=== PATIENT | female | born 1950 | race Two or more races ===

== ENCOUNTER 2016-04-03 17:51 | Inpatient (IN) | payer MEDICARE, MEDICAID ==
[~2016-04-03] VITALS: Ht 160 cm; Wt 72.1 kg
[2016-04-03] MEDS ORDERED: NITROGLYCERIN PACKET 1 GM PACKET ONE (18:45)
[2016-04-03] MEDS ORDERED: LORAZEPAM 1 MG TABLET ONE (18:45)
[2016-04-03 18:46] LABS: BASOPHILS % (AUTO) 0.4 % (0.0-2.0); DIFF TOTAL % 100 %; EOSINOPHILS % (AUTO) 0.5 % (0.0-6.0); HEMATOCRIT 38 % (33-45); HEMOGLOBIN 12.4 g/dL (11.5-14.8); LYMPHOCYTES # (AUTO) 1.3 /CMM (0.8-4.8); LYMPHOCYTES % (AUTO) 13.5 % (20.0-44.0); MEAN CORPUSCULAR HEMOGLOBIN 29 PG (26.0-33.0); MEAN CORPUSCULAR HGB CONC 33 g/dl (31.0-36.0); MEAN CORPUSCULAR VOLUME 87 fL (82-100); MONOCYTES # (AUTO) 0.4 /CMM (0.1-1.30); MONOCYTES % (AUTO) 4.5 % (2.0-12.0); NEUTROPHILS # (AUTO) 7.7 /CMM (1.8-8.9); NEUTROPHILS % (AUTO) 81.1 % (43.0-81.0); PLATELET COUNT (AUTO) 281 /CMM (150-450); RED BLOOD CELL COUNT(AUTO) 4.31 MIL/uL (4.0-5.2); WHITE BLOOD COUNT (AUTO) 9.4 K/uL (4.3-11.0)
[2016-04-03 19:00] LABS: INR 0.97 (0.87-1.13); PROTHROMBIN TIME 10.2 SECS (9.5-12.7)
[2016-04-03] MEDS ORDERED: NITROGLYCERIN PACKET 1 GM PACKET TD ONE (19:00)
[2016-04-03] MEDS ORDERED: LORAZEPAM 1 MG TABLET PO ONE (19:00)
[2016-04-03] MEDS ORDERED: ASPIRIN 325 MG TABLET PO ONE (19:00)
[2016-04-03] MEDS ORDERED: ASPIRIN 325 MG TABLET ONE (19:03)
[2016-04-03 19:05] LABS: TROPONIN I < 0.017 ng/mL (0.00-0.056)
[2016-04-03 19:09] LABS: CALCIUM, SERUM 7.8 mg/dL (8.5-10.1); CARBON DIOXIDE 28 mmol/L (21-32); CREATININE 0.6 mg/dL (0.6-1.3); GFR 100 mL/min (>60); GLUCOSE 98 mg/dL (74-106); UREA NITROGEN, BLOOD 11 mg/dL (7-18)
[2016-04-03 19:26] LABS: CHLORIDE 94 mmol/L (98-107); POTASSIUM 3.4 mmol/L (3.5-5.1); SODIUM SERUM 128 mmol/L (136-145)
[2016-04-03 19:31] LABS: ANION GAP 9 (5-14)
[2016-04-03] MEDS ORDERED: IV NS 0.9% 500 ML IV ONE (19:44)
[2016-04-03] MEDS ORDERED: IV SET PRIMARY 1 EA INFUS.SET MC ONE (19:44)
[2016-04-03] MEDS ORDERED: IV NS 0.9% 500 ML BAG IV ONE (20:00)
[2016-04-03] MEDS ORDERED: ACETAMINOPHEN 325 MG TABLET PO PRN (20:30)
[2016-04-03] MEDS ORDERED: Z GUARD REMEDY 2 OZ OINT TP PRN (20:30)
[2016-04-03] MEDS ORDERED: ZOLPIDEM TARTRATE 5 MG TABLET PO PRN (20:30)
[2016-04-03] MEDS ORDERED: MAGNESIUM HYDROXIDE 30 ML UDC PO PRN (20:30)
[2016-04-03] MEDS ORDERED: HYDROCODONE/APAP 5/325MG 1 EACH TABLET PO PRN (20:30)
[2016-04-03] MEDS ORDERED: MAG HYDROX/AL HYDROX/SIMETH 30 ML UDC PO PRN (20:30)
[2016-04-03] MEDS ORDERED: ONDANSETRON HCL/PF 4 MG/2 ML VIAL IVP PRN (20:30)
[2016-04-03 20:55] VITALS: BP 129/81
[2016-04-03 21:00] VITALS: BP 129/81
[2016-04-04] VITALS (7 sets, daily range): BP systolic 103–134; BP diastolic 60–85
[2016-04-04] MEDS ORDERED: HYDR25TA4 PO (02:51)
[2016-04-04] MEDS ORDERED: ENAL10TA PO (02:51)
[2016-04-04] MEDS ORDERED: THYR60TA2 PO (02:51)
[2016-04-04 08:04] LABS: BASOPHILS % (AUTO) 0.3 % (0.0-2.0); DIFF TOTAL % 100 %; EOSINOPHILS # (AUTO) 0.1 /CMM (0.0-0.7); EOSINOPHILS % (AUTO) 1.1 % (0.0-6.0); HEMATOCRIT 36 % (33-45); HEMOGLOBIN 12.3 g/dL (11.5-14.8); LYMPHOCYTES # (AUTO) 2.1 /CMM (0.8-4.8); LYMPHOCYTES % (AUTO) 23.9 % (20.0-44.0); MEAN CORPUSCULAR HEMOGLOBIN 30 PG (26.0-33.0); MEAN CORPUSCULAR HGB CONC 34 g/dl (31.0-36.0); MEAN CORPUSCULAR VOLUME 88 fL (82-100); MONOCYTES # (AUTO) 0.8 /CMM (0.1-1.30); MONOCYTES % (AUTO) 9.6 % (2.0-12.0); NEUTROPHILS # (AUTO) 5.6 /CMM (1.8-8.9); NEUTROPHILS % (AUTO) 65.1 % (43.0-81.0); PLATELET COUNT (AUTO) 273 /CMM (150-450); RED BLOOD CELL COUNT(AUTO) 4.12 MIL/uL (4.0-5.2); WHITE BLOOD COUNT (AUTO) 8.6 K/uL (4.3-11.0)
[2016-04-04 08:06] LABS: CALCIUM, SERUM 8.2 mg/dL (8.5-10.1); CREATININE 0.5 mg/dL (0.6-1.3); PHOSPHORUS 3.5 mg/dL (2.5-4.9); POTASSIUM 3.2 mmol/L (3.5-5.1)
[2016-04-04 09:16] LABS: KETONES,URINE 1+ (NEGATIVE); LEUKOCYTE ESTERASE ,URINE NEGATIVE (NEGATIVE); PH,URINE 7.5 (5.0-8.0)
[2016-04-04 09:46] LABS: ADD UA MICROSCOPIC NO
[2016-04-04] MEDS: POTASSIUM CHLORIDE 20 MEQ TAB.PRT.SR PO SCH ×2 (12:23→16:50)
[2016-04-05] MEDS ORDERED: THYROID 30 MG TABLET PO SCH (07:30)
[2016-04-05] MEDS ORDERED: ENALAPRIL MALEATE (10 MG) 10 MG TABLET PO SCH (09:00)
== END 2016-04-04 20:30 | disposition home or self-care (01) | DRG 305 ==
LOC: ER 17:53 → TELE 20:47 → MED 04-04 13:25
PROVIDERS: ADMIT Family Medicine; ATTEND Family Medicine
DX: I16.1 Hypertensive emergency (principal); E87.1 Hypo-osmolality and hyponatremia; E87.6 Hypokalemia; Z83.3 Family history of diabetes mellitus; E03.9 Hypothyroidism, unspecified; E86.0 Dehydration; E87.8 Other disorders of electrolyte and fluid balance, not elsewhere classified; F32.9 Major depressive disorder, single episode, unspecified; R07.9 Chest pain, unspecified
CPT/HCPCS: 36415; 70450-TC; 71010-TC; 80048-TC; 80061-TC; 81000-TC; 83735-TC; 84100-TC; 84484-TC; 85025-TC; 85730-TC; 87081-TC; 93307-TC; A4606; J7040; Z7610